=== PATIENT | female | born 1970 | race American Indian/Alaskan Native ===

== ENCOUNTER 2020-12-14 21:14 | Emergency (ER) | payer SELFPAY ==
[2020-12-14 21:57] VITALS: BP 149/82
--- NOTE | 2020-12-14 22:36 | Emergency Department Report ---
ED General Adult HPI - General Chief complaint: Chest Pain Stated complaint: CHEST HURT/BREAST HURT PUI?: Yes Time Seen by Provider: 12/14/20 22:21 Source: EMS Mode of arrival: Ambulatory Limitations: No Limitations - History of Present Illness Initial comments: Patient is a 50-year-old female that presents emergency room with complaints of breast pain in the left chest pain. Patient states her breast pain going on for 2 days. Patient states her left breast pain is worsening. Patient states it is a 10 out of 10. Patient states the breast pain is severe. Patient states she is never had a mammogram. Patient denies fever and chills. Patient denies shortness of breath. Patient denies nausea vomiting. Patient denies diaphoresis. Patient denies recent travel. Patient denies recent international travel. Patient denies exposure to the novel coronavirus. Patient denies sick contacts. Patient denies fever and chills. Patient denies cough. Patient denies diarrhea. Patient denies coming in contact with anybody with symptoms of the novel coronavirus. Patient is currently a patient of [facility] and was sent here for medical evaluation. Patient has a psychiatric sitter with her. -: Sudden Location: left (Breast) Severity scale (0 -10): 6 Quality: stabbing Consistency: constant Improves with: rest Worsens with: movement, other (Palpation) Associated Symptoms: chest pain. denies: confusion, cough, diaphoresis, fever/chills, headaches, loss of appetite, malaise, nausea/vomiting, rash, seizure, shortness of breath, syncope, weakness Treatments Prior to Arrival: none - Related Data Previous Rx's Medication Instructions Recorded Last Taken Type Amoxicillin [Amoxicillin TAB] 875 mg PO BID 20 Days #10 tablet 12/14/20 Unknown Rx Clindamycin [Clindamycin CAP] 300 mg PO Q8H 10 Days #30 capsule 12/14/20 Unknown Rx Allergies Allergy/AdvReac Type Severity Reaction Status Date / Time haloperidol [From Haldol] Allergy Hives Verified 12/14/20 22:03 quetiapine [From Seroquel] AdvReac Unknown Verified 12/14/20 22:03 ED Review of Systems ROS: Stated complaint: CHEST HURT/BREAST HURT Other details as noted in HPI Constitutional: denies: chills, fever Eyes: denies: eye pain, eye discharge, vision change ENT: denies: ear pain, throat pain Respiratory: denies: cough, shortness of breath, wheezing Cardiovascular: as per HPI, chest pain. denies: palpitations Endocrine: no symptoms reported Gastrointestinal: denies: abdominal pain, nausea, diarrhea Genitourinary: denies: urgency, dysuria, discharge Musculoskeletal: denies: back pain, joint swelling, arthralgia Skin: denies: rash, lesions Neurological: denies: headache, weakness, paresthesias Psychiatric: denies: anxiety, depression Hematological/Lymphatic: denies: easy bleeding, easy bruising ED Past Medical Hx - Past Medical History Previous Medical History?: Yes Hx Psychiatric Treatment: Yes - Surgical History Past Surgical History?: No - Family History Family history: no significant - Social History Smoking Status: Never Smoker Substance Use Type: None - Medications Home Medications: Home Medications Medication Instructions Recorded Confirmed Last Taken Type Amoxicillin [Amoxicillin TAB] 875 mg PO BID 20 Days #10 tablet 12/14/20 Unknown Rx Clindamycin [Clindamycin CAP] 300 mg PO Q8H 10 Days #30 capsule 12/14/20 Unknown Rx ED Physical Exam - General Limitations: No Limitations General appearance: alert, in no apparent distress - Head Head exam: Present: atraumatic, normocephalic - Eye Eye exam: Present: normal appearance - ENT ENT exam: Present: mucous membranes moist - Neck Neck exam: Present: normal inspection - Respiratory Respiratory exam: Present: normal lung sounds bilaterally, chest wall tenderness, other (Breast exam done with compounding pharmacy technician, Stacie in the room at all times. Patient has tenderness to the left breast. Patient has redness noted at the 12 palpation around the areola. Patient has hardness and tenderness to palpation to the left breast consistent with mastitis.). Absent: respiratory distress, wheezes, rales - Cardiovascular Cardiovascular Exam: Present: regular rate, normal rhythm. Absent: systolic murmur, diastolic murmur, rubs, gallop - GI/Abdominal GI/Abdominal exam: Present: soft, normal bowel sounds. Absent: distended, tenderness, guarding - Extremities Exam Extremities exam: Present: normal inspection - Back Exam Back exam: Present: normal inspection - Neurological Exam Neurological exam: Present: alert, oriented X3 - Psychiatric Psychiatric exam: Present: normal affect, normal mood - Skin Skin exam: Present: warm, dry, intact, normal color. Absent: rash ED Course Vital Signs 12/14/20 21:54 Pulse Rate 72 Respiratory 18 Rate Blood Pressure 149/82 O2 Sat by Pulse 98 Oximetry - Reevaluation(s) Reevaluation #1: I discussed all results and clinical findings with patient. I discussed plan of care with patient. Patient agrees with plan of care. Patient is stable for discharge. Patient will be discharged home. Patient given discharge instructions. Patient voiced understanding of discharge instructions. 12/14/20 22:34 ED Medical Decision Making - Medical Decision Making Patient is a 50-year-old female who presents to the emergency room for evaluation of her left chest pain and left breast pain. Patient had a breast exam which showed significant tenderness to palpation and redness. Clinical findings are consistent with left breast mastitis. Patient will be treated with oral antibiotics. Patient not require any further emergency medical services. Patient is currently a resident at [facility] for psychiatric rehabilitation. Patient will be discharged back to [facility]. Patient has a sitter with her and will remain in the care of the sitter. Patient not require any further emergency medical service. Patient require inpatient service. Patient not require further testing. Patient stable for discharge. Patient discharged back to [facility]. Patient's breast exam was done with risk intern in the room. - Differential Diagnosis Chest pain, left breast pain, mastitis, fibrocystic changes Critical care attestation.: If time is entered above; I have spent that time in minutes in the direct care of this critically ill patient, excluding procedure time. ED Disposition Clinical Impression: Breast pain, left, Acute mastitis of left breast Disposition: [address] [place] [address] Is pt being admited?: No Does the pt Need Aspirin: No Condition: Stable Instructions: Mastitis, Etrh-to-Gvhb, Breast Tenderness, Nonspecific Chest Pain, Adult Additional Instructions: Patient to follow-up with primary care in 2 to 3 days. Patient to follow-up with TELEVISION PROGRAM DIRECTOR in 2 to 3 days. Patient to rest. Patient to increase water. Patient to apply warm compress to the left breast 7 times per day. Patient to take Tylenol or ibuprofen as needed for pain. Patient to take meds as directed. Patient to return to the ER if condition worsens, changes or new symptoms arise. Prescriptions: Amoxicillin [Amoxicillin TAB] 875 mg PO BID 20 Days #10 tablet Clindamycin [Clindamycin CAP] 300 mg PO Q8H 10 Days #30 capsule Referrals: JC RODRIGUEZ MD [Staff Physician] - 2-3 Days ANA ORNELAS MD [Staff Physician] - 2-3 Days Time of Disposition: 22:41
== END 2020-12-15 03:00 ==
LOC: ED 21:14
DX: N61.0 Mastitis without abscess (principal); Z88.8 Allergy status to other drugs, medicaments and biological substances; Z79.899 Other long term (current) drug therapy
CPT/HCPCS: 99283

== ENCOUNTER 2021-06-23 20:51 | Emergency (ER) | payer MEDICARE ==
[2021-06-23] MEDS ORDERED: LORazepam 2 MG/ML VIAL IM PRN (21:26)
[2021-06-23] MEDS ORDERED: ZIPRASIDONE MESYLATE 20 MG VIAL IM PRN (21:26)
--- NOTE | 2021-06-23 21:28 | Emergency Department Report ---
ED General Adult HPI - General Chief complaint: Psych Stated complaint: PSYCHOTIC EPISODE Time Seen by Provider: 06/23/21 21:25 Source: patient, EMS (Verbal report received from emergency medical services. EMS documentation not available at time of chart dictation ), RN notes reviewed Mode of arrival: Stretcher Limitations: Other (Acute psychosis and disorganization) - History of Present Illness Initial comments: This patient is a 50-year-old female. She is brought to the hospital [place] fire department [place] the local airport. Patient is acutely psychotic and disorganized, and history is obtained entirely from EMS. EMS reports that patient is reportedly dropped off at the airport by friends or family, possibly for psychiatric reasons. Patient had apparently made some comment about wanting to kill people in a car, and possibly making comments about being suicidal. The patient presented to police department at the airport, and 911 was activated. EMS endorses stable vital signs in the field. In the emergency room, the patient is disorganized, and talking about putting people in a garbage can. The patient is acutely psychotic, and not accompanied by friends or family at this time for collateral information or additional information. Patient on review of systems endorses a chronic mechanical lower back pain, but otherwise, denies acute physical pain. - Related Data Previous Rx's Medication Instructions Recorded Last Taken Type Amoxicillin [Amoxicillin TAB] 875 mg PO BID 20 Days #10 tablet 12/14/20 Unknown Rx Clindamycin [Clindamycin CAP] 300 mg PO Q8H 10 Days #30 capsule 12/14/20 Unknown Rx Allergies Allergy/AdvReac Type Severity Reaction Status Date / Time aspirin Allergy Hives Verified 06/23/21 21:32 divalproex sodium Allergy Rash Verified 06/23/21 21:32 [From Depakote] haloperidol [From Haldol] Allergy Hives Verified 12/14/20 22:03 quetiapine [From Seroquel] AdvReac Unknown Verified 12/14/20 22:03 ED Review of Systems ROS: Stated complaint: PSYCHOTIC EPISODE Other details as noted in HPI Comment: Unobtainable due to pts medical conditions (Patient is acutely psychotic) Musculoskeletal: back pain ED Past Medical Hx - Past Medical History Hx Psychiatric Treatment: Yes - Social History Smoking Status: Never Smoker Substance Use Type: None - Medications Home Medications: Home Medications Medication Instructions Recorded Confirmed Last Taken Type Amoxicillin [Amoxicillin TAB] 875 mg PO BID 20 Days #10 tablet 12/14/20 Unknown Rx Clindamycin [Clindamycin CAP] 300 mg PO Q8H 10 Days #30 capsule 12/14/20 Unknown Rx ED Physical Exam - General Limitations: Other (Psychosis and disorganized) General appearance: alert, anxious, obese - Head Head exam: Present: atraumatic, normocephalic - Eye Eye exam: Present: normal appearance, EOMI. Absent: nystagmus - ENT ENT exam: Present: normal exam, normal orophraynx, mucous membranes moist, normal external ear exam - Neck Neck exam: Present: normal inspection, full ROM. Absent: tenderness, meningismus - Respiratory Respiratory exam: Present: normal lung sounds bilaterally. Absent: respiratory distress, wheezes, rales, rhonchi, stridor, decreased breath sounds - Cardiovascular Cardiovascular Exam: Present: regular rate, normal rhythm, normal heart sounds. Absent: bradycardia, tachycardia, irregular rhythm, systolic murmur, diastolic murmur, rubs, gallop - GI/Abdominal GI/Abdominal exam: Present: soft. Absent: distended, tenderness, guarding, rebound, rigid, pulsatile mass - Extremities Exam Extremities exam: Present: normal inspection, full ROM, other (2+ pulses noted in the bilateral upper and lower extremities. There is no palpable cord. negative Homans sign. Muscular compartments are soft. The pelvis is stable.). Absent: pedal edema, calf tenderness - Back Exam Back exam: Present: normal inspection, full ROM. Absent: tenderness, CVA tenderness (R), CVA tenderness (L), paraspinal tenderness, vertebral tenderness - Neurological Exam Neurological exam: Present: alert (The patient is alert to name and follows command), normal gait, other (No facial droop. Tongue midline. Extraocular movements intact bilaterally. Facial sensation intact to light touch in V1, V2, V3 distribution bilaterally. 5 and a 5 strength in 4 extremities. Sensation intact to light touch in 4 extremities.) - Psychiatric Psychiatric exam: Present: anxious - Skin Skin exam: Present: warm, dry, intact, normal color. Absent: rash ED Course Vital Signs 06/23/21 21:21 Temperature 98.6 F Pulse Rate 90 Respiratory 18 Rate Blood Pressure 145/80 O2 Sat by Pulse 97 Oximetry - Reevaluation(s) Reevaluation #1: 06/23/21 22:15 Differential diagnosis, including but not limited to: Psychosis, disorganized behavior, medical clearance for psychiatric placement Assessment and plan: 50-year-old female, who was afebrile, with reassuring vital signs, with a benign and unremarkable physical examination, who presents as acutely psychotic. 1013 ordered and written by myself. Appropriate screening laboratory studies ordered, including urine drug screen and Covid swab, ordered in anticipation of psychiatric team's request for psychiatric placement. As needed orders initiated. We will follow as the patient provides laboratory studies. 06/24/21 00:54 Laboratory studies are unremarkable. Urinalysis, drug screen and Covid swab pending. Emergency room will follow along as the patient provides these samples . At this point in time, this patient does not appear to have an immediate medical contraindication to psychiatric admission, evaluation, consultation and placement ED Medical Decision Making - Lab Data Result diagrams: 06/23/21 22:57 06/23/21 22:57 Vital Signs 06/23/21 21:21 Temperature 98.6 F Pulse Rate 90 Respiratory 18 Rate Blood Pressure 145/80 O2 Sat by Pulse 97 Oximetry Lab Results 06/23/21 06/23/21 06/23/21 Range/Units 22:57 22:57 22:57 WBC 8.9 (4.5-11.0) K/mm3 RBC 4.08 (3.65-5.03) M/mm3 Hgb 12.1 (10.1-14.3) gm/dl Hct 36.1 (30.3-42.9) % MCV 89 (79-97) fl MCH 30 (28-32) pg MCHC 33 (30-34) % RDW 14.3 (13.2-15.2) % Plt Count 283 (140-440) K/mm3 Lymph % (Auto) 33.4 (13.4-35.0) % [place] % (Auto) 5.9 (0.0-7.3) % Eos % (Auto) 1.6 (0.0-4.3) % Baso % (Auto) 0.5 (0.0-1.8) % Lymph # (Auto) 3.0 (1.2-5.4) K/mm3 [place] # (Auto) 0.5 (0.0-0.8) K/mm3 Eos # (Auto) 0.1 (0.0-0.4) K/mm3 Baso # (Auto) 0.0 (0.0-0.1) K/mm3 Seg Neutrophils % 58.6 (40.0-70.0) % Seg Neutrophils # 5.2 (1.8-7.7) K/mm3 Sodium 138 (137-145) mmol/L Potassium 4.3 (3.6-5.0) mmol/L Chloride 99.3 (98-107) mmol/L Carbon Dioxide 24 (22-30) mmol/L Anion Gap 19 mmol/L BUN 9 (7-17) mg/dL Creatinine 1.1 (0.6-1.2) mg/dL Estimated GFR > 60 ml/min BUN/Creatinine Ratio 8 % Glucose 163 H (65-100) mg/dL Calcium 9.1 (8.4-10.2) mg/dL Total Bilirubin 0.20 (0.1-1.2) mg/dL AST 20 (5-40) units/L ALT 47 (7-56) units/L Alkaline Phosphatase 80 (35-129) units/L Total Protein 7.3 (6.3-8.2) g/dL Albumin 4.1 (3.9-5) g/dL Albumin/Globulin Ratio 1.3 % TSH (0.270-4.200) mlU/mL Salicylates < 0.3 L (2.8-20.0) mg/dL Acetaminophen (10.0-30.0) ug/mL [place] 0.1 (0.0-1.2) mmol/L Plasma/Serum Alcohol (0-0.07) % 06/23/21 06/23/21 06/23/21 Range/Units 22:57 22:57 22:57 WBC (4.5-11.0) K/mm3 RBC (3.65-5.03) M/mm3 Hgb (10.1-14.3) gm/dl Hct (30.3-42.9) % MCV (79-97) fl MCH (28-32) pg MCHC (30-34) % RDW (13.2-15.2) % Plt Count (140-440) K/mm3 Lymph % (Auto) (13.4-35.0) % [place] % (Auto) (0.0-7.3) % Eos % (Auto) (0.0-4.3) % Baso % (Auto) (0.0-1.8) % Lymph # (Auto) (1.2-5.4) K/mm3 [place] # (Auto) (0.0-0.8) K/mm3 Eos # (Auto) (0.0-0.4) K/mm3 Baso # (Auto) (0.0-0.1) K/mm3 Seg Neutrophils % (40.0-70.0) % Seg Neutrophils # (1.8-7.7) K/mm3 Sodium (137-145) mmol/L Potassium (3.6-5.0) mmol/L Chloride (98-107) mmol/L Carbon Dioxide (22-30) mmol/L Anion Gap mmol/L BUN (7-17) mg/dL Creatinine (0.6-1.2) mg/dL Estimated GFR ml/min BUN/Creatinine Ratio % Glucose (65-100) mg/dL Calcium (8.4-10.2) mg/dL Total Bilirubin (0.1-1.2) mg/dL AST (5-40) units/L ALT (7-56) units/L Alkaline Phosphatase (35-129) units/L Total Protein (6.3-8.2) g/dL Albumin (3.9-5) g/dL Albumin/Globulin Ratio % TSH 3.120 (0.270-4.200) mlU/mL Salicylates (2.8-20.0) mg/dL Acetaminophen 5.0 L (10.0-30.0) ug/mL [place] (0.0-1.2) mmol/L Plasma/Serum Alcohol 0.01 (0-0.07) % Critical care attestation.: If time is entered above; I have spent that time in minutes in the direct care of this critically ill patient, excluding procedure time. ED Disposition Clinical Impression: Medical clearance for psychiatric admission, Acute psychosis Disposition: [address] [place] [address] Is pt being admited?: No Does the pt Need Aspirin: No Condition: Stable Referrals: ANGELES BURGESS [Other] - 3-5 Days
[2021-06-23 21:31] VITALS: BP 145/80
[2021-06-23 23:40] LABS: Alanine Aminotransferase 47 units/L (7-56); Albumin 4.1 g/dL (3.9-5); BUN/Creatinine Ratio 8; Blood Urea Nitrogen 9 mg/dL (7-17); Calcium 9.1 mg/dL (8.4-10.2); Hemolysis Index 8
[2021-06-24 00:28] LABS: Basophils % (Auto) 0.5 % (0.0-1.8); Eosinophils # (Auto) 0.1 K/mm3 (0.0-0.4); Eosinophils % (Auto) 1.6 % (0.0-4.3); Hematocrit 36.1 % (30.3-42.9); Hemoglobin 12.1 gm/dl (10.1-14.3); Lymphocytes % (Auto) 33.4 % (13.4-35.0); Mean Corpuscular HGB Conc 33 % (30-34); Mean Corpuscular Volume 89 fl (79-97); Monocytes # (Auto) 0.5 K/mm3 (0.0-0.8); Monocytes % (Auto) 5.9 % (0.0-7.3); Platelet Count 283 K/mm3 (140-440); Red Blood Count 4.08 M/mm3 (3.65-5.03); Red Cell Distribution Width 14.3 % (13.2-15.2)
[2021-06-24 03:54] LABS: Amphetamine Screen,Urine PRESUMPTIVE NEGATIVE; Benzodiazepines Screen,Urine PRESUMPTIVE NEGATIVE; Cannabinoid Screen,Urine PRESUMPTIVE NEGATIVE; Cocaine Screen,Urine PRESUMPTIVE NEGATIVE; Methadone Screen,Urine PRESUMPTIVE NEGATIVE; Opiate Screen,Urine PRESUMPTIVE NEGATIVE
[2021-06-24 04:27] LABS: Bacteria,Urine 2+ /HPF (Negative); Bilirubin,Urine NEG (Negative); Blood,Urine NEG (Negative); Color,Urine Straw (Yellow); Protein,Urine <15 mg/dL mg/dL (Negative); RBC,Urine < 1.0 /HPF (0.0-6.0); Urobilinogen,Urine < 2.0 mg/dL (<2.0)
--- NOTE | 2021-06-24 09:38 | Consultation ---
History of Present Illness - Reason for Consult Consult date: 06/24/21 Reason for consult: Psychosis - History of Present Psychiatric Illness ED Note: This patient is a 50-year-old female. She is brought to the hospital by local fire department [place] the local airport. Patient is acutely psychotic and disorganized, and history is obtained entirely from EMS. EMS reports that patient is reportedly dropped off at the airport by friends or family, possibly for psychiatric reasons. Patient had apparently made some comment about wanting to kill people in a car, and possibly making comments about being suicidal. The patient presented to police department at the airport, and 911 was activated. EMS endorses stable vital signs in the field. In the emergency room, the patient is disorganized, and talking about putting people in a garbage can. The patient is acutely psychotic, and not accompanied by friends or family at this time for collateral information or additional information. Patient on review of systems endorses a chronic mechanical lower back pain, but otherwise, denies acute physical pain. The patient was seen this morning. She is alert and oriented x2. She reports that she stopped taking her medication because she was visiting with a friend and did not have her meds with her. She reports that she was hearing voices y . The patient reports that she is with [facility] and gets Invega sustenna monthly, last injection was 06/03/21. The patient denies any current suicidal/homicidal ideation and denies hallucinations. PAST PSYCHIATRIC HISTORY Diagnoses: Schizophrenia Suicide attempts or Self-harm behavior:Yes Prior psychiatric hospitalizations: Yes Substance Abuse history:marijuana Previous psychiatric medications tried:Invega Outpatient treatment: [facility] SOCIAL HISTORY Marital Status: Single Living Arrangements: Homeless Employment Status: Unemployed/ disability Access to guns/weapons: Denies Education: GED History of abuse: Denies Legal History: Denies ROS Constitutional: Negative for weight loss EMT: Respiratory: Negative for cough or hemoptysis All other systems reviewed and are negative MENTAL STATUS EXAMINATION General Appearance: Dressed appropriately. Behavior: Calm and cooperative. Good eye contact. Mood: "ok" Affect: congruent to stated mood Speech: Normal tone and pace Thought Process: Goal directed Thought Content:Denies Suicidal Ideation:Denies Homicidal Ideation: Denies Hallucinations: Denies Delusions: None elicited Insight and Judgment: Limited Memory/Cognition: Limited Assessment and Plan (1)Schizophrenia Treatment Plan Continue home meds No medications prescribed Risks, benefits and alternatives of medications discussed with the patient, questions answered and consent obtained from patient. PSYCHOTHERAPY: Supportive psychotherapy provided MEDICAL: Per primary team DELIRIUM PRECAUTIONS: Please re-orient patient frequently, keep lights on during the day, and minimize benzodiazepines and opiates as these medications could worsen patient's confusion. DRYWALL TAPER HELPER: Per primary DISPOSITION: Do not Recommend acute inpatient psychiatric hospitalization at this time. Patient to follow up with [facility] team Will sign off. Thank you for the consult. Please contact with any questions and/or concerns. Case discussed with Dr. Lomeli who agrees with current disposition Medications and Allergies Medications and Allergies Allergies Allergy/AdvReac Type Severity Reaction Status Date / Time aspirin Allergy Hives Verified 06/23/21 21:32 divalproex sodium Allergy Rash Verified 06/23/21 21:32 [From Depakote] haloperidol [From Haldol] Allergy Hives Verified 12/14/20 22:03 quetiapine [From Seroquel] AdvReac Unknown Verified 12/14/20 22:03 Home Medications Medication Instructions Recorded Confirmed Last Taken Type Amoxicillin [Amoxicillin TAB] 875 mg PO BID 20 Days #10 tablet 12/14/20 Unknown Rx Clindamycin [Clindamycin CAP] 300 mg PO Q8H 10 Days #30 capsule 12/14/20 Unknown Rx Active Meds: Active Medications Lorazepam (Lorazepam 2 Mg/Ml Vial) 2 mg IM Q4HR PRN PRN Reason: Agitation Ziprasidone (Ziprasidone Mesylate 20 Mg Vial) 10 mg IM Q2H PRN PRN Reason: Agitation Mental Status Exam - Vital signs Last Vital Signs Temp 98.6 F 06/23/21 21:21 Pulse 90 06/23/21 21:21 Resp 18 06/23/21 21:25 BP 145/80 06/23/21 21:21 Pulse Ox 100 06/23/21 21:25 Results Result Diagrams: 06/23/21 22:57 06/23/21 22:57 Abnormal lab results 06/23/21 06/23/21 06/23/21 Range/Units 22:57 22:57 22:57 Glucose 163 H (65-100) mg/dL Urine pH (5.0-7.0) Salicylates < 0.3 L (2.8-20.0) mg/dL Acetaminophen 5.0 L (10.0-30.0) ug/mL 06/24/21 Range/Units Unknown Glucose (65-100) mg/dL Urine pH 8.0 H (5.0-7.0) Salicylates (2.8-20.0) mg/dL Acetaminophen (10.0-30.0) ug/mL All other labs normal.
--- NOTE | 2021-06-24 11:13 | Emergency Department Report ---
Blank Doc - Documentation Documentation: 50-year-old female schizophrenia initially presented with acute psychosis. Francis wade was evaluated by mental health and recommended discharge with outpatient follow-up. Patient receives Invega q. monthly with next shot due June 03.
== END 2021-06-24 11:46 | disposition home or self-care (01) ==
LOC: ED 20:51
DX: F23 Brief psychotic disorder (principal); Z04.6 Encounter for general psychiatric examination, requested by authority; Z88.6 Allergy status to analgesic agent; Z88.1 Allergy status to other antibiotic agents; Z91.09 Other allergy status, other than to drugs and biological substances; Z79.899 Other long term (current) drug therapy
CPT/HCPCS: 36415; 80053; 80178; 80307; 80320; 81001; 84443; 85025; 99284; G0480